=== PATIENT | female | born 1980 | race Caucasian/White ===

== ENCOUNTER 2017-08-12 08:41 | Observation (INO) | payer OTHER, MEDICAID ==
--- NOTE | 2017-08-11 08:12 | PDGENHP ---
History and Physical History and Physical: Assessment and Plan: 1. Endometriosis Srinath has laparoscopic proven endometriosis which appears to have been minimally treated. Her symptoms are consistent with persistent disease. We discussed all conservative and surgical options. At the end of our discussion she is interested in surgical intervention. She has been sterilized for 15 years. She will be scheduled for a robotic hysterectomy with excision of endometriosis. We discussed the pros and cons of removing her ovaries. She will make a final determination by the morning of surgery. I will perform her preoperative counseling over the phone given the distance she must drive to my office. 2. Pelvic pain in female 3. Dyschezia 4. Dyspareunia, female Subjective: Patient ID: Srinath Cruz is a 37 y.o. female who presents to [facility] for endometriosis. MARICEL Yo is a para 2 woman who presents to discuss endometriosis. In July 2015 she developed severe pelvic pain and underwent an emergent laparoscopy where she was found to have endometriosis. She felt somewhat better for about 4 months until the pain returned. It has slowly worsened since then. Her cycles are regular every month. She will bleed for 6 days with a normal flow. Previously she had menorrhagia but this has been controlled with norethindrone. However she feels a sharp stabbing pain in her pelvis. It radiates down both legs somewhat worse on the left. She feels extremely fatigued with the pain. She feels the pain on a daily basis but it waxes and wanes. She also has dyschezia and dyspareunia. She takes ibuprofen and Tylenol for the pain which provides minimal relief. Her often finds her crying in bed secondary to pain. She does have a history of chlamydia and a cholecystectomy. She is using tubal ligation for contraception. She lives in [place]. 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 She is . Her children are ages 24-14. PastMedicalHistory Past Medical History: Diagnosis Date Allergy to pollen Anemia Body mass index (BMI) of 35 07/31/2015 Complication of anesthesia Low SpO2 required over night stay Gastrointestinal disorder GERD (gastroesophageal reflux disease) Hypertension Motion sickness Car, occ. planes Oxygen dependent 1L/NC at night ; does not wear this PCOS (polycystic ovarian syndrome) Sleep apnea Unable to tolerate CPAP, Wear O2 at 1L/NC intermittently STD (sexually transmitted disease) Chlamydia- treated Urinary tract infection Varicella PastSurgicalHistory Past Surgical History: Procedure Laterality Date CHOLECYSTECTOMY, LAPAROSCOPIC 2009 NASAL SINUS SURGERY Bilateral 2010 PELVIC LAPAROSCOPY SALPINGECTOMY TONSILLECTOMY Bilateral 2010 TUBAL LIGATION Bilateral 2001 WISDOM TOOTH EXTRACTION CURRENT MEDICATIONS: Current Outpatient Prescriptions Medication Sig amitriptyline (ELAVIL) 25 mg tablet ibuprofen (ADVIL,MOTRIN) 800 mg tablet Take 1 tablet by mouth every 8 hours as needed for Pain (Mild to Moderate Pain). Take with food. lisinopril (PRINIVIL,ZESTRIL) 20 mg tablet Take 20 mg by mouth daily for hypertension. metFORMIN (GLUCOPHAGE) 500 mg tablet Take 500 mg by mouth 2 times daily for POLYCYSTIC OVARIAN SYNDROME. multivitamin (HEXAVITAMIN) per tablet Take 1 tablet by mouth daily. omeprazole (PRILOSEC) 20 mg capsule Take 20 mg by mouth daily as needed. tiZANidine (ZANAFLEX) 4 mg tablet lisinopril (PRINIVIL,ZESTRIL) 10 mg tablet Take 10 mg by mouth. oxyCODONE-acetaminophen (PERCOCET) 5-325 mg tab Take 1 tablet by mouth every 6 hours as needed for Pain. This med has acetaminophen (APAP). (Patient not taking: Reported on 06/23/2017) tiZANidine (ZANAFLEX) 2 mg tablet Take 2 mg by mouth every 6 hours as needed for Muscle Spasm. No current facility-administered medications for this visit. ALLERGIES: Review of patient's allergies indicates no known allergies. I have reviewed, verified and agree with the past medical, surgical, , family, social and ROS history as documented by the RN today. Objective: Vital Signs: Visit Vitals BP 124/76 Pulse 97 Temp 36.4 C (97.6 F) (Temporal Artery) Resp 16 Ht 1.575 m (5' 2") Wt 93.9 kg (207 lb) LMP 05/04/2017 (Exact Date) SpO2 97% BMI 37.86 kg/m Physical Exam Gen: This is an alert, well developed woman in no distress. Neuro: She moves all extremities. Psych: She is appropriate, oriented, with normal affect. Neck: No thyroid enlargement, adenopathy, or tenderness. Lungs: Clear to ascultation, no wheezes or rales. Heart: Regular rate and rhythm without obvious murmurs. Abdomen: Soft, non-tender, without guarding, rebound, or masses. Extremities: No edema or cyanosis. Pelvic: Normal external genitalia. Non-gaping introitus, vagina without discharge, adequately estrogenized, no significant prolapse. Cervix without lesions or discharge. Uterus normal size. Adnexa non-tender without enlargement. The posterior cervix and posterior uterus are tender. The posterior cul-de-sac as well as both uterosacral ligaments are also tender with possible small nodularity. There appears to be a nodule in the right lower uterine segment. She has mild prolapse. DATA: I have reviewed the pertinent medical records. I reviewed the intraoperative photos which are in her chart. She has adhesions both in the abdomen and pelvis. Some of these are likely from prior chlamydia. However many of the pelvic adhesions appear to be from endometriosis. I can see endometriosis and a nodule on the right uterosacral ligament as well as endometriosis on the left ovary. No close photos are seen in the posterior cul-de-sac or right adnexa. TIME/COMMUNICATION: I personally spent a total of 50 minutes. Of that 40 minutes was counseling/ coordination of patient's care. See my note above for details. Rick Espinoza MD Board Certified Female Pelvic Medicine and Reconstructive Surgery Director of Minimally Invasive Gynecologic Surgery, [facility] Surgeon in Minimally Invasive Gynecologic Surgery [facility] Surgeon in Robotic Surgery
[2017-08-12] MEDS ORDERED: PHENAZOPYRIDINE HCL 200 MG TAB PO ONE (09:15)
[2017-08-12] MEDS ORDERED: ceFAZolin 2 GM/SWFI 2 GM/20 ML SYR IVP ONE (09:15)
[2017-08-12] MEDS ORDERED: ACETAMINOPHEN 500 MG TAB PO ONE (09:15)
[2017-08-12] MEDS ORDERED: GABAPENTIN 400 MG CAP PO ONE (09:15)
[2017-08-12] MEDS ORDERED: LR 1,000 ML IV ONE (09:27)
--- NOTE | 2017-08-12 09:59 | POSTANESTH ---
Post Anesthetic Evaluation Cardiovascular Status: Normal, Stable Respiratory Status: Normal, Stable Level of Consciousness/Mental Status: Can Participate in Eval Pain Control: Adequate, Prn Tx Ordered Nausea/Vomiting Control: Adequate, Prn Tx Ordered
--- NOTE | 2017-08-12 10:03 | PDANEPAE ---
ANE History of Present Illness 37 year old female for robotic hysterectomy for endometriosis. ANE Past Medical History - Cardiovascular History Hx Hypertension: Yes Hx Arrhythmias: No Hx Chest Pain: No Hx Coronary Artery / Peripheral Vascular Disease: No Hx CHF / Valvular Disease: No Hx Palpitations: No Cardiovascular History Comment: pcp monitors bp - Pulmonary History Hx COPD: No Hx Asthma/Reactive Airway Disease: No Hx Recent Upper Respiratory Infection: No Hx Oxygen in Use at Home: No Hx Sleep Apnea: Yes Sleep Apnea Screening Result - Last Documented: Positive Pulmonary History Comment: mild nida- doesn't use cpap - Neurologic History Hx Cerebrovascular Accident: No Hx Seizures: No Hx Dementia: No - Endocrine History Hx Diabetes: No Endocrine History Comment: takes metformin for pcos - Renal History Hx Renal Disorders: No - Liver History Hx Hepatic Disorders: No - Neurological & Psychiatric Hx Hx Neurological and Psychiatric Disorders: Yes Neurological / Psychiatric History Comment: anxiety - Cancer History Hx Cancer: No - Congenital Disorder History Hx Congenital Disorders: No - GI History Hx Gastrointestinal Disorders: Yes Gastrointestinal History Comment: GERD - Other Health History Other Health History: none - Chronic Pain History Chronic Pain: No - Surgical History Prior Surgeries: florentin. tonsillectomy. laprascopy for endometriosis. tubal ligation ANE Review of Systems Review of Systems: - Exercise capacity METS (RN): 4 METS ANE Patient History - Allergies Allergies/Adverse Reactions: No Known Allergies Allergy (Verified 07/17/17 15:44) - Home Medications Home Medications: Acetaminophen [Tylenol 325mg (*)] 325 mg PO DAILY PRN 07/10/17 [Last Taken 08/08] Amitriptyline HCl [Elavil 50 mg (*)] 25 mg PO HS 07/10/17 [Last Taken 08/08/17] Ibuprofen [Motrin (*)] 200 mg PO DAILY PRN 07/10/17 [Last Taken 08/08/17] Lisinopril [Zestril 20 mg (*)] 20 mg PO DAILY 07/10/17 [Last Taken 08/11/17] Multivitamins [Multivitamin (*)] 1 each PO DAILY 07/10/17 [Last Taken 08/08/17] Omeprazole [Prilosec 20 mg] 20 mg PO DAILY 07/10/17 [Last Taken 08/12/17] metFORMIN HCL [Glucophage 500 mg (*)] 500 mg PO QID 07/10/17 [Last Taken ] tiZANidine HCL [Zanaflex] 4 mg PO HS 07/10/17 [Last Taken 08/08/17] - NPO status NPO Since - Liquids (Date): 08/12/17 NPO Since - Liquids (Time): 07:30 NPO Since - Solids (Date): 08/11/17 NPO Since - Solids (Time): 17:30 - Anes Hx Anes Hx: no prior problems - Smoking Hx Smoking Status: Never smoked - Family Anes Hx Family Hx Anesthesia Complications: mother- same rxn ANE Labs/Vital Signs - Vital Signs Blood Pressure: 129/85 Heart Rate: 84 Respiratory Rate: 14 O2 Sat (%): 95 Height: 157.48 cm Weight: 94.347 kg ANE Physical Exam - Airway Mallampati Score: Class 2 Mouth exam: normal dental/mouth exam - ASA Status ASA Status: II
[2017-08-12] MEDS ORDERED: ROCURONIUM 100 MG/10 ML VIAL ONE (10:04)
[2017-08-12] MEDS ORDERED: fentaNYL 100 MCG/2 ML INJ ONE ×2 (10:04→13:51)
[2017-08-12] MEDS ORDERED: BUPIVACAINE/EPI 0.5% 30 ML SDV ONE (10:04)
[2017-08-12] MEDS ORDERED: fentaNYL 250 MCG/5 ML INJ ONE (10:05)
[2017-08-12] MEDS ORDERED: MIDAZOLAM 2 MG/2 ML VIAL ONE (10:05)
--- NOTE | 2017-08-12 10:12 | PDHPUP ---
History & Physical Update H&P update statement: This history and physical update is based on an assessment of the patient which was completed after admission or registration (within 24 hours), but prior to the surgery/procedure. H&P update: H&P reviewed & patient examined, no change in patient's condition since H&P completed
[2017-08-12] MEDS ORDERED: PROPOFOL/EMULSION 500 MG/50 ML BOTTLE IV ONE ×2 (10:36→10:37)
[2017-08-12] MEDS ORDERED: LIDOCAINE 2% 5 ML SDV ONE (10:37)
[2017-08-12] MEDS ORDERED: PROPOFOL 200 MG/20 ML VIAL ONE (10:39)
[2017-08-12] MEDS ORDERED: NALOXONE HCL 0.4 MG/ML INJ IVP PRN (11:24)
[2017-08-12] MEDS ORDERED: PROMETHAZINE HCL 25 MG/ML INJ IVP PRN ×2 (11:25→13:04)
[2017-08-12] MEDS ORDERED: LABETALOL HCL 5 MG/ML 20 ML MDV IVP PRN (11:25)
[2017-08-12] MEDS ORDERED: DEXAMETHASONE 4 MG/ML VIAL IVP PRN (11:25)
[2017-08-12] MEDS ORDERED: ONDANSETRON 4 MG/2 ML VIAL IVP PRN ×2 (11:25→13:04)
[2017-08-12] MEDS ORDERED: SUGAMMADEX SODIUM 200 MG/2 ML VIAL IVP ONE (12:55)
[2017-08-12] MEDS ORDERED: KETOROLAC 30 MG/1 ML SDV ONE (12:56)
[2017-08-12] MEDS ORDERED: HYDROmorphONE/DILAUDID 1 MG/ML INJ IVP PRN (13:04)
[2017-08-12] MEDS ORDERED: HYDROCODONE/APAP 5/325 TAB PO PRN (13:04)
[2017-08-12] MEDS ORDERED: DIAZEPAM 10 MG/2 ML SYR IVP PRN (13:04)
--- NOTE | 2017-08-12 13:08 | POSTOPPROG ---
Post Op Note Date of Operation: 08/12/17 Surgeon: Rick Espinoza Sensory Scientist: Danii Dyer Anesthesia: GET(General Endotracheal) Pre-op Diagnosis: Endometriosis Post-op Diagnosis: Same Procedure: Robotic hyst, RSO, bilat ureterolysis and US Lig colpopexy, cysto Findings: Ureters function at end of case Inf/Abcess present in the surg proc area at time of surgery?: No EBL: Minimal Complications: None
[2017-08-12] MEDS ORDERED: HYDROmorphONE/DILAUDID 1 MG/ML INJ ONE (13:23)
[2017-08-12] MEDS: HYDROmorphONE/DILAUDID 1 MG/ML INJ IVP PRN ×3 (13:24→13:45)
[2017-08-12] MEDS ORDERED: LR 1,000 ML IV SCH (13:30)
[2017-08-12] MEDS ORDERED: DIAZEPAM 10 MG/2 ML SYR ONE (13:48)
[2017-08-12] MEDS: fentaNYL 100 MCG/2 ML INJ IVP PRN ×2 (13:52→14:21)
[2017-08-12] MEDS: KETOROLAC 30 MG/1 ML SDV IVP SCH ×3 (15:25→21:42)
[2017-08-12] MEDS: SIMETHICONE 80 MG TAB CHEW PO SCH ×2 (19:50→21:42)
[2017-08-12] MEDS ORDERED: DOCUSATE SODIUM 100 MG CAP PO SCH (21:00)
[2017-08-12] MEDS: oxyCODONE IR 5 MG TAB PO PRN ×2 (21:54→23:31)
--- NOTE | 2017-08-12 23:12 | GOP ---
[f rep st] OPERATIVE REPORT DATE OF OPERATION: 08/12/2017 SURGEON: Rick Espinoza MD PROMOTIONS PRODUCER: Danii Dyer CFA ANESTHESIA: General. PREOPERATIVE DIAGNOSIS: 1. Dysmenorrhea. 2. Pelvic pain. 3. Endometriosis. POSTOPERATIVE DIAGNOSIS: 1. Dysmenorrhea. 2. Pelvic pain. 3. Endometriosis. PROCEDURE PERFORMED: 1. Robotic-assisted total laparoscopic hysterectomy, bilateral salpingectomy, right oophorectomy. 2. Excision of endometriosis in posterior cul-de-sac and bilateral ovarian fossa. 3. Bilateral ureterolysis. 4. Uterosacral ligament colpopexy. 5. Left ovarian pexy. 6. Cystoscopy. FINDINGS: SPECIMENS: Uterus, cervix, bilateral tubes, and right ovary, peritoneum with endometriosis. ESTIMATED BLOOD LOSS: 75 mL. DESCRIPTION OF PROCEDURE: The patient was taken to the operating room, where she was identified. Ge neral anesthesia was administered and found to be adequate. She was placed in the lithotomy position and prepared and draped in normal sterile fashion. A [place] uterine manipulator was placed into the endometrial cavity and sutured to the cervix. A Uribe catheter was then placed. A 1 cm infraumbilical incision was made with a scalpel. The Veress needle with the CO2 gas flowing w as advanced into the peritoneal cavity. The abdomen was then insufflated with carbon dioxide gas. T he 12 mm trocar followed by the laparoscope were then inserted. The upper abdomen was unremarkable. There was no evidence of endometriosis on either diaphragm, liver, or stomach. Two lateral ports we re placed on the right and one on the left under direct visualization. She then was placed in [place] position and the da Arpita robot docked on the left side. The instruments were then brought i nto the abdominal cavity under direct visualization. She was found to have endometriosis in both ovarian fossas and the posterior cul-de-sac. The left ov tonia was free of disease. As a result, it was left in place. The left fallopian tube was a long the mesosalpinx. The utero-ovarian ligament, followed by the round ligament, were then cauteriz ed and transected. The anterior leaf of the broad ligament was then incised over the left uterine ve ssels and across the cervix. The bladder was gently dissected off the cervix and upper vagina. The left uterine vasculature was then cauterized and transected. The right round ligament was divided. The anterior leaf of the broad ligament was incised to the bif urcation in the right common iliac vessels. A window was created in the posterior leaf to skeletoniz e the infundibulopelvic vessels. They were then cauterized and transected. This was anterior to the ureter, which was adequately visualized. The right uterine vasculature was then cauterized and montgomery sected. A circumferential colpotomy incision was then made with the hot ruslan and the specimen madiha kirk through the vagina. The endometriosis posterior cul-de-sac was then completely excised. The pat ient required a bilateral ureterolysis due to the endometriosis overlying both ureters. The peritone um at the pelvic brims was incised. The ureters were gently dissected free. The ureters were latera lized off the overlying peritoneum all the way down to the bladder. Once this was accomplished, the peritoneum in both ovarian fossas was completely excised. The pelvis was then irrigated with sterile saline, and hemostasis was present. The vaginal cuff was then closed with a running suture of 0 V-Loc 180. A bilateral uterosacral ligament colpopexy was per formed by attaching the lateral aspects of the vaginal cuff to the ipsilateral uterosacral ligaments near their insertion into the coccygeal-sacrospinous ligament complexes. This was accomplished with 0 PDS suture. The left ovary was then attached to the left round ligament with 3-0 Vicryl suture. T he robot was then undocked. The fascia was closed with 0 Vicryl, skin with 4-0 Monocryl and surgical adhesive. Cystoscopy was then performed. Both ureters had vigorous jets of urine. There was no ev idence of bladder nor urethral injury seen. No obvious pathology was seen. Anesthesia was reversed, and the patient taken to the PACU awake, in stable condition. COMPLICATIONS: None. DISPOSITION: Patient stable to PACU. /[id number]/MODL
[2017-08-13] MEDS: oxyCODONE IR 5 MG TAB PO PRN ×3 (04:00→11:51)
[2017-08-13] MEDS: KETOROLAC 30 MG/1 ML SDV IVP SCH ×2 (04:00→10:58)
[2017-08-13 04:19] LABS: % IMMATURE GRANULYOCYTES 0.3 % (0.0-1.1); ABSOLUTE IMMATURE GRANULOCYTES 0.04 10^3/uL (0.00-0.10); ADD DIFF? NO; ADD MORPH? NO; ADD SCAN? NO; ATYPICAL LYMPHOCYTE FLAG 0 (0-99); FRAGMENT RBC FLAG 0 (0-99); HEMATOCRIT 34.2 % (38.0-47.0); HEMOGLOBIN 12.1 g/dL (12.6-16.3); LEFT SHIFT FLG 0 (0-99); LIPEMIA HEMOLYSIS FLAG 90 (0-99); MEAN CELL HEMOGLOBIN 32.1 pg (27.9-34.1); MEAN CELL HEMOGLOBIN CONCENTR. 35.4 g/dL (32.4-36.7); MEAN CELL VOLUME 90.7 fL (81.5-99.8); MEAN PLATELET VOLUME 8.3 fL (8.7-11.7); PLATELET CLUMPS FLAG 10 (0-99); PLATELET COUNT 354 10^3/uL (150-400); RED BLOOD CELL COUNT 3.77 10^6/uL (4.18-5.33)
[2017-08-13 10:05] VITALS: BP 112/78; PULSE 83; RESP 16; TEMP 97.3; O2SAT 97
--- NOTE | 2017-08-13 10:55 | GDS ---
[f rep st] DISCHARGE SUMMARY DISCHARGE DIAGNOSES: 1. Endometriosis. 2. Dysmenorrhea. 3. Pelvic pain. PROCEDURES: 1. Robotic-assisted total laparoscopic hysterectomy, bilateral salpingectomy, right oophorectomy. 2. Excision of endometriosis. 3. Bilateral ureterolysis. 4. Uterosacral ligament colpopexy. 5. Left ovarian pexy. 6. Cystoscopy. HOSPITAL COURSE: The patient suffered from pain secondary to endometriosis. She was taken to the op erating room on 08/12/2017, where she underwent the above-mentioned procedures without complications. Her postoperative course was uneventful. The morning after surgery she was ambulating, voiding, an d tolerating a general diet. She was discharged home on postoperative day #1 in good condition. Med ications include Percocet and ibuprofen for pain. She is to follow up in the office 2 weeks after mary valente. /[id number]/MODL
[2017-08-13] MEDS: SIMETHICONE 80 MG TAB CHEW PO SCH (11:50)
== END 2017-08-13 12:00 | disposition home or self-care (01) ==
LOC: F3E 08:41 → FOB 15:02
PROVIDERS: ADMIT Obstetrics & Gynecology; ATTEND Obstetrics & Gynecology
DX: N80.1 Endometriosis of ovary (principal); N80.3 Endometriosis of pelvic peritoneum; N94.6 Dysmenorrhea, unspecified; R10.2 Pelvic and perineal pain
CPT/HCPCS: 57425; 58571; G0378; J0690; J1170; J1885; J2250; J2405; J2704; J3010